=== PATIENT | female | born 1975 | race Caucasian/White ===

== ENCOUNTER 2023-10-13 20:33 | Emergency (ER) | payer MEDICAID ==
[~2023-10-13] VITALS: Ht 162.6 cm; Wt 113.0 kg
[~2023-10-13 20:33] MED LIST: AMOX-263; DOXY100C4; GLIP5TAB12; HYDR-2595; LEVO100T69; OME20GT; PROPRANOLOL 20 MG TABLET; TRIA25CA
[2023-10-13] MEDS ORDERED: HYDROmorphone HCL 2 MG/ML VL/or syr IM ONE (21:15)
[2023-10-13 21:29] LABS: Urine Epithelial Cast None Seen /hpf (<5)
[2023-10-13 21:58] LABS: Urine Bacteria FEW /hpf (None Seen); Urine Blood Negative /uL (Negative); Urine Clarity HAZY (Clear); Urine Color Colorless (Yellow); Urine Protein, UAD Negative (Negative); Urine Specific Gravity 1.004 (1.001-1.035); Urine Urobilinogen Normal (Negative); Urine WBC <1 /hpf (0 - 5)
[2023-10-13 23:16] VITALS: BP 163/78; PULSE 75; RESP 18; TEMP 97.9; O2SAT 97
== END 2023-10-13 23:18 | disposition home or self-care (01) ==
LOC: ER 20:33
DX: S16.1XXA Strain of muscle, fascia and tendon at neck level, initial encounter (principal); S46.912A Strain of unspecified muscle, fascia and tendon at shoulder and upper arm level, left arm, initial encounter; I10 Essential (primary) hypertension; E11.9 Type 2 diabetes mellitus without complications; E03.9 Hypothyroidism, unspecified; K21.9 Gastro-esophageal reflux disease without esophagitis; Z90.49 Acquired absence of other specified parts of digestive tract; X58.XXXA Exposure to other specified factors, initial encounter; Y93.89 Activity, other specified; Y92.89 Other specified places as the place of occurrence of the external cause; Y99.8 Other external cause status
CPT/HCPCS: 72040; 81001; 96372; 99284; J1170